=== PATIENT | female | born 1965 | race African-American/Black ===

== ENCOUNTER 2025-06-05 10:15 | Outpatient (CLI) | payer MEDICAID ==
--- NOTE | 2025-06-05 11:48 | RADIOLOGY REPORT ---
CT CT HEAD Indication: HEADACHE EXAM DATE: 06/05/2025 10:47 AM COMPARISON: None TECHNIQUE: CT of the head without intravenous contrast. RADIATION DOSE: CTDIvol: 51 mGy, DLP: 795 mGy*cm FINDINGS: There is no intracranial hemorrhage. There is no extra-axial fluid, mass, mass effect or midline shif t. The ventricles are midline and normal in size. Basilar cisterns are patent. There are mild periven tricular and subcortical white matter chronic microvascular ischemic changes. The paranasal sinuses and mastoids are well-pneumatized. Imaged portion of the orbits are unremarkabl e. IMPRESSION: No intracranial hemorrhage or mass effect. Mild chronic microvascular ischemic changes.
== END 2025-06-05 23:59 | disposition home or self-care (01) ==
LOC: RAD 10:15
PROVIDERS: ATTEND Nurse Practitioner Family
DX: I67.82 Cerebral ischemia (principal); I25.85 Chronic coronary microvascular dysfunction; R51.9 Headache, unspecified
CPT/HCPCS: 70450